=== PATIENT | female | born 1960 | race Caucasian/White ===

== ENCOUNTER 2016-04-19 07:35 | Day surgery (SDC) | payer BC, MEDICARE ==
--- NOTE | ~2016-04-19 | EGD ---
EGD REPORT [facility] [address] [address] NAME: ALLI ASENCIO : 58 STATUS : REG [facility]#: [id number] AGE: 55 ADM/REG DATE : 04/19/16 MR#: [id number] REPORT SERV DATE: 04/19/16 DICTATED BY: DATE: REPORT STATUS : Draft TRANSCRIBED BY: [facility] DATE: 04/19/16 Endoscopy Center Patient Name: Alli Asencio Date of : 1960 Attending MD: ELAINE MONTENEGRO MD Procedure Date No Time: 04/19/2016 Procedure: Colonoscopy Indications: Screening for colorectal malignant neoplasm Referring MD: TRISHA CHAVARRIA Medicines: Monitored Anesthesia Care Complications: No immediate complications. Procedure: Pre-Anesthesia Assessment: - ASA Grade Assessment: III - A patient with severe systemic disease. After I obtained informed consent, the scope was passed under direct vision. Throughout the procedure, the patient's blood pressure, pulse, and oxygen saturations were monitored continuously. The PCF [id number] was introduced through the anus and advanced to the cecum, identified by appendiceal orifice and ileocecal valve. The colonoscopy was performed without difficulty. The patient tolerated the procedure well. The quality of the bowel preparation was good. Findings: The perianal and digital rectal examinations were normal. A few small-mouthed diverticula were found in the sigmoid colon. Multiple sessile polyps were found in the recto-sigmoid colon. The polyps were small in size. These polyps were removed with a cold snare. Resection and retrieval were complete. Two sessile polyps were found in the transverse colon. The polyps were small in size. These polyps were removed with a cold snare. Resection and retrieval were complete. A sessile polyp was found in the descending colon. The polyp was small in size. The polyp was removed with a cold snare. Resection and retrieval were complete. No other significant abnormalities were identified in a careful examination of the remainder of the colon. There is no endoscopic evidence of bleeding, inflammation, mass, ulcerations or angioectasia in the entire colon. Internal hemorrhoids were found during retroflexion and were Grade I (internal hemorrhoids that do not prolapse). No additional abnormalities were found on retroflexion. Impression: - Diverticulosis in the sigmoid colon. EGD REPORT [address] [place]. [address] NAME: ALLI ASENCIO : 58 STATUS : REG [facility]#: [id number] AGE: 55 ADM/REG DATE : 04/19/16 MR#: [id number] REPORT SERV DATE: 04/19/16 DICTATED BY: DATE: REPORT STATUS : Draft TRANSCRIBED BY: [employer] DATE: 04/19/16 - Multiple small polyps at the recto-sigmoid colon. Resected and retrieved. - Two small polyps in the transverse colon. Resected and retrieved. - One small polyp in the descending colon. Resected and retrieved. - Internal hemorrhoids. Recommendation: - Patient has a contact number available for emergencies. The signs and symptoms of potential delayed complications were discussed with the patient. Return to normal activities tomorrow. Written discharge instructions were provided to the patient. - High fiber diet. - Discharge patient to home. - Continue present medications. - Await pathology results. - Repeat colonoscopy in 3 years for surveillance. Procedure Code(s): --- Professional --- 56624, Colonoscopy, flexible, proximal to splenic flexure; with removal of tumor(s), polyp(s), or other lesion(s) by snare technique Diagnosis Code(s): --- Professional --- K64.0, First degree hemorrhoids K57.30, Diverticulosis of large intestine without perforation or abscess without bleeding D12.4, Benign neoplasm of descending colon D12.3, Benign neoplasm of transverse colon D12.7, Benign neoplasm of rectosigmoid junction Z12.11, Encounter for screening for malignant neoplasm of colon CPT copyright 2013 [employer]. All rights reserved. The codes documented in this report are preliminary and upon plant operator helper review may be revised to meet current compliance requirements. ELAINE MONTENEGRO MD 04/19/2016 12:46 PM This report has been signed electronically. Number of Addenda: 0 Note Initiated On: 04/19/2016 9:12 AM EGD REPORT [facility] [address]. [address] NAME: ALLI ASENCIO GERALDO : 58 STATUS : REG [facility] PAT#: [id number] AGE: 55 ADM/REG DATE : 04/19/16 MR#: [id number] REPORT SERV DATE: 04/19/16 DICTATED BY: DATE: REPORT STATUS : Draft TRANSCRIBED BY: [employer] DATE: 04/19/16 Scope Withdrawal Time 0 hours 15 minutes [address] [place], [place] [address] [address]
[~2016-04-19 07:35] MED LIST: ACET500CAP PO; ADVAIR250 INH; ALLEGRA180 PO; ALTA125 PO; ASAB PO; ATEN25 PO; COREG6 PO; FISH-EPA1000 MG PO; GLUCPH PO; L20 PO; LIPITOR40 PO; LORT7 PO; MULTIVIT/MIN PO; NITROII10C TOP; NITROQUICK0.4 MG SL; NITROSPRAY SL; NORCO1 TA2 PO; PLAVIX PO; PROAIR HFA INH; SINGULAIR1 PO; SUPER B-100 OR; VICTOZA18 MG/3 ML SC; VITAMIN D31000 UNIT PO; ZETIA PO
== END 2016-04-19 23:59 | disposition home or self-care (01) ==
LOC: DMU 07:35
PROVIDERS: Internal Medicine Gastroenterology
PROC: 0DBM8ZZ Excision of Descending Colon, Via Natural or Artificial Opening Endoscopic (ICD-10-PCS; 2016-04-19)
PROC: 0DBL8ZZ Excision of Transverse Colon, Via Natural or Artificial Opening Endoscopic (ICD-10-PCS; 2016-04-19)
PROC: 0DBN8ZZ Excision of Sigmoid Colon, Via Natural or Artificial Opening Endoscopic (ICD-10-PCS; principal; 2016-04-19 10:30)
DX: Z12.11 Encounter for screening for malignant neoplasm of colon (principal); K57.30 Diverticulosis of large intestine without perforation or abscess without bleeding; K64.8 Other hemorrhoids; D12.3 Benign neoplasm of transverse colon; D12.4 Benign neoplasm of descending colon; K63.5 Polyp of colon; I10 Essential (primary) hypertension; J45.909 Unspecified asthma, uncomplicated; E11.9 Type 2 diabetes mellitus without complications; I25.10 Atherosclerotic heart disease of native coronary artery without angina pectoris; Z88.1 Allergy status to other antibiotic agents; Z88.8 Allergy status to other drugs, medicaments and biological substances
CPT/HCPCS: 82962; 88305